=== PATIENT | female | born 1965 | race Caucasian/White ===

== ENCOUNTER 2024-09-24 23:48 | Emergency (ER) | payer OTHER ==
[2024-09-24 23:55] VITALS: RESP 18; TEMP 98.4
--- NOTE | 2024-09-25 00:36 | ED ---
General Adult HPI - General Chief complaint: Extremity Injury, Upper Stated complaint: Fall, hurt left wrist Time Seen by Provider: 09/24/24 23:56 Source: patient, RN notes reviewed Mode of arrival: ambulatory Limitations: no limitations - History of Present Illness Initial comments: 59-year-old female presents to the emergency department for evaluation of left wrist injury. Patient states that she slipped on wet grass today and landed on an outstretched left hand. She states that since then she has had swelling and pain to the left wrist. She denies any other injury. She is able to move her fingers and her elbow without limitations. She denies blood thinners. Denies head injury. - Related Data Previous Rx's Medication Instructions Recorded HYDROcodone/APAP 5-325MG [[place] 5] 1 each PO Q6HR PRN #12 tab 09/25/24 Ibuprofen [Motrin] 800 mg PO Q8HR #15 tab 09/25/24 Allergies Allergy/AdvReac Type Severity Reaction Status Date / Time cephalexin [From Keflex] Allergy Rash/Hives Verified 09/24/24 23:55 Sulfa (Sulfonamide Allergy Itching Verified 09/24/24 23:55 Antibiotics) Review of Systems ROS Statement: Those systems with pertinent positive or pertinent negative responses have been documented in the HPI. ROS Other: All systems not noted in ROS Statement are negative. Past Medical History Past Medical History: No Reported History History of Any Multi-Drug Resistant Organisms: None Reported Past Surgical History: No Surgical Hx Reported Past Psychological History: No Psychological Hx Reported Smoking Status: Never smoker Past Alcohol Use History: Occasional Past Drug Use History: None Reported General Exam Limitations: no limitations General appearance: alert, in no apparent distress Head exam: Present: atraumatic, normocephalic, normal inspection Eye exam: Present: normal appearance, PERRL, EOMI. Absent: scleral icterus, conjunctival injection, periorbital swelling Respiratory exam: Present: normal lung sounds bilaterally. Absent: respiratory distress, wheezes, rales, rhonchi, stridor Cardiovascular Exam: Present: regular rate, normal rhythm, normal heart sounds. Absent: systolic murmur, diastolic murmur, rubs, gallop, clicks Extremities exam: Present: tenderness (Left wrist tenderness palpation, swelling present, bruising present, decreased range of motion), normal capillary refill, other (Radial pulses 2+, normal capillary refill). Absent: full ROM, pedal edema, joint swelling, calf tenderness Neurological exam: Present: alert, oriented X3 Psychiatric exam: Present: normal affect, normal mood Skin exam: Present: warm, dry, intact, other (Ecchymosis and swelling to the left wrist). Absent: normal color Course Vital Signs 09/24/24 23:52 Temperature 98.4 F Pulse Rate 97 Respiratory 18 Rate Blood Pressure 126/67 O2 Sat by Pulse 98 Oximetry Procedures - Nerve Block Consent Obtained: verbal consent Local Anesthetic Used: Lidocaine 1% Amount of anesthesia used: 6 Side: left Nerve Blocks: hematoma block Procedure Successful: Yes Complications: none - Orthopedic Fracture Reduction Fracture #1 Consent Obtained: verbal consent Side: left Fracture Reduction Location: radius Analgesia: hematoma block Technique: direct manipulation Post Reduction X-rays Demonstrate: acceptable reduction Post-Reduction Neuro Exam: intact Post-Reduction Vascular Exam: intact Splint Applied: Yes Patient Tolerated Procedure: well - Orthopedic Splinting/Casting Injury #1 Side: left Upper Extremity Injury Location: short arm Upper Extremity Immobilizer: sugar tong splint Medical Decision Making - Medical Decision Making Was pt. sent in by a medical professional or institution (, PA, ENERGY ANALYST, urgent care, hospital, or halfway...) When possible be specific @ -No Did you speak to anyone other than the patient for history (EMS, parent, family, police, friend...)? What history was obtained from this source @ -No Did you review nursing and triage notes (agree or disagree)? Why? @ -I reviewed and agree with nursing and triage notes Were old charts reviewed (outside hosp., previous admission, EMS record, old EKG, old radiological studies, urgent care reports/EKG's, halfway records)? Report findings @ -No old charts were reviewed Differential Diagnosis (chest pain, altered mental status, abdominal pain women, abdominal pain men, vaginal bleeding, weakness, fever, dyspnea, syncope, headache, dizziness, GI bleed, back pain, seizure, CVA, palpatations, mental health, musculoskeletal)? @ -Differential Musculoskeletal Muscular strain, contusion, ligament sprain, fracture, arthritis, septic arthritis, bursitis, cellulitis, muscle spasm, nerve compression, DVT, arterial occlusion, herpes zoster, electrolyte abnormality, tumor.... This is not meant to be in all inclusive list EKG interpreted by me (3pts min.). @ -None X-rays interpreted by me (1pt min.). @ -X-ray of the left wrist obtained that shows a comminuted displaced, angulated intra-articular distal radius fracture, comminuted intra-articular minimally displaced ulnar styloid fracture X-ray postreduction of the left wrist shows improvement in alignment CT interpreted by me (1pt min.). @ -None done U/S interpreted by me (1pt. min.). @ -None done What testing was considered but not performed or refused? (CT, X-rays, U/S, labs)? Why? @ -None What meds were considered but not given or refused? Why? @ -None Did you discuss the management of the patient with other professionals (professionals i.e. , PA, ENERGY ANALYST, lab, RT, psych nurse, social media senior associate, director business development, teacher, traffic control officer, mattress spring encaser)? Give summary @ -No Was smoking cessation discussed for >3mins.? @ -No Was critical care preformed (if so, how long)? @ -No Were there social determinants of health that impacted care today? How? (Homelessness, low income, unemployed, alcoholism, drug addiction, tr ansportation, low edu. Level, literacy, decrease access to med. care, shelter, rehab)? @ -No Was there de-escalation of care discussed even if they declined (Discuss DNR or withdrawal of care, Hospice)? DNR status @ -No What co-morbidities impacted this encounter? (DM, HTN, Smoking, COPD, CAD, Cancer, CVA, ARF, Chemo, Hep., AIDS, mental health diagnosis, sleep apnea, morbid obesity)? @ -None Was patient admitted / discharged? Hospital course, mention meds given and route, prescriptions, significant lab abnormalities, going to OR and other pertinent info. @ -Discharge. Patient presented the emergency department for evaluation of left wrist injury. X-rays obtained revealing fracture of the distal radius. Hematoma block was performed and patient was provided medication for pain control in the ED. Attempted reduction with improvement in alignment of the radius. Patient was placed in a sugar-tong splint. Neurovascular status was assessed post splint and is intact. Advised her to follow-up with orthopedics. She is understanding agreeable with this plan. Patient stable at time of discharge. Case discussed with Dr. Fischer. Undiagnosed new problem with uncertain prognosis? @ -No Drug Therapy requiring intensive monitoring for toxicity (Heparin, Nitro, Insulin, Cardizem)? @ -No Were any procedures done? @ -No Diagnosis/symptom? @ -Radius fracture Acute, or Chronic, or Acute on Chronic? @ -Acute Uncomplicated (without systemic symptoms) or Complicated (systemic symptoms)? @ -Uncomplicated Side effects of treatment? @ -No Exacerbation, Progression, or Severe Exacerbation? @ -No Poses a threat to life or bodily function? How? (Chest pain, USA, MS, pneumonia, PE, COPD, DKA, ARF, appy, cholecystitis, CVA, Diverticulitis, Homicidal, Suicidal, threat to staff... and all critical care pts) @ -No Disposition Clinical Impression: Fracture of ulnar styloid, Distal radius fracture Disposition: HOME SELF-CARE Condition: Stable Instructions (If sedation given, give patient instructions): Wrist Injury (ED) Additional Instructions: Please follow up with orthopedics. Return to the emergency department for new or worsening symptoms. Prescriptions: Ibuprofen [Motrin] 800 mg PO Q8HR #15 tab HYDROcodone/APAP 5-325MG [[place] 5] 1 each PO Q6HR PRN #12 tab PRN Reason: Pain Is patient prescribed a controlled substance at d/c from ED?: Yes When asked, does pt state using other controlled substances?: No If prescribed controlled substance>3 days was MAPS reviewed?: Prescribed <3 Days Referrals: Vera Carson DO [Primary Care Provider] - 1-2 days Oleg Conteh MD [Medical Doctor] - 1-2 days
[2024-09-25] MEDS: LIDOCAINE 1% INJ 10MG/ML (20 ML MDV) SQ ONE (00:50)
[2024-09-25] MEDS: MORPHINE SULFATE 4 MG/ML SYRINGE IM STA (00:50)
--- NOTE | 2024-09-25 01:39 | XR ---
EXAM: XR Left Wrist Complete, 3 or More Views CLINICAL HISTORY: ITS.REASON XR Reason: pain TECHNIQUE: Frontal, lateral and oblique views of the left wrist. COMPARISON: No relevant prior studies available. FINDINGS: Bones/joints: Comminuted displaced, angulated, intra-articular distal radial fracture. Comminuted intra-articular, minimally displaced ulnar styloid fracture. No dislocation. Soft tissues: Unremarkable. No radiopaque foreign body. IMPRESSION: Acute distal radial and ulnar styloid fractures as described above
[2024-09-25] MEDS: ACET/COD 300 MG/30 MG STARTER PACK 6 TAB BTL PO STA (02:18)
[2024-09-25 02:21] VITALS: BP 124/79; PULSE 90
--- NOTE | 2024-09-25 02:32 | XR ---
EXAM: XR Left Wrist Complete, 3 or More Views CLINICAL HISTORY: ITS.REASON XR Reason: post red TECHNIQUE: Frontal, lateral and oblique views of the left wrist. COMPARISON: Exam performed earlier on the same date FINDINGS: Bones/joints: Interval reduction of the degree of angulation involving the previously noted distal radial fracture. Stable appearance to ulnar styloid fracture. Overlying cast material somewhat obscures bony detail. No dislocation. Soft tissues: Unremarkable. No radiopaque foreign body. IMPRESSION: Redemonstration of distal radial and ulnar styloid fractures which are not narrowing better anatomic alignment.
== END 2024-09-25 02:20 | disposition home or self-care (01) ==
LOC: EC 23:48
DX: S52.502A Unspecified fracture of the lower end of left radius, initial encounter for closed fracture (principal); S52.612A Displaced fracture of left ulna styloid process, initial encounter for closed fracture; Z88.1 Allergy status to other antibiotic agents; Z88.2 Allergy status to sulfonamides; W01.0XXA Fall on same level from slipping, tripping and stumbling without subsequent striking against object, initial encounter
CPT/HCPCS: 73100; 73110; 25605; 99283; 96372; J2270; J2003